=== PATIENT | female | born 1975 ===

== ENCOUNTER 2016-08-30 09:57 | Outpatient (CLI) | payer OTHER ==
[2016-08-30 13:34] LABS: Free T4 (Free Thyroxine) 0.75 ng/dL (0.70-1.48); T4 4.1 ug/dL (4.87-11.72); Thyroid Stimulating Hormone 1.3315 uIU/mL (0.35-4.94); Vitamin D, 25 Hydroxy 44.8 ng/ml (> 30.0)
== END 2016-08-30 09:58 | disposition home or self-care (01) ==
LOC: HPCALD 09:57
PROVIDERS: ATTEND Physician Assistant
DX: Z13.21 Encounter for screening for nutritional disorder (principal); E03.9 Hypothyroidism, unspecified
CPT/HCPCS: 36415; 82306; 82607; 83540; 84436; 84439; 84443; 84481